=== PATIENT | female | born 1960 | race Caucasian/White ===

== ENCOUNTER → 2017-06-13 | Outpatient (CLI) | payer BC ==
[2017-06-13 12:53] LABS: BASO % 0 % (0-3); EOS # 0.2 x10^3/uL (0.0-0.7); EOS % 2 % (0-3); HEMATOCRIT 44.6 % (36.0-47.0); HEMOGLOBIN 15.2 g/dL (12.0-15.5); LYMPH # 1.9 x10^3/uL (1.0-4.8); LYMPH % 18 % (24-48); MEAN CORPUSCULAR HEMOGLOBIN 31 pg (25-35); MEAN CORPUSCULAR HGB CONC 34 g/dL (31-37); MEAN CORPUSCULAR VOLUME 91 fL (79-100); MONO # 0.5 x10^3/uL (0.0-1.1); MONO % 5 % (0-9); NEUT % 75 % (31-73); PLATELET COUNT 297 x10^3/uL (140-400); RED BLOOD COUNT 4.92 x10^6/uL (3.50-5.40); RED CELL DISTRIBUTION WIDTH 13.9 % (11.5-14.5); WHITE BLOOD COUNT 10.6 x10^3/uL (4.0-11.0)
[2017-06-13 13:10] LABS: ALBUMIN 3.6 g/dL (3.4-5.0); ALBUMIN/GLOBULIN RATIO 1.1 (1.0-1.7); CALCIUM 9.3 mg/dL (8.5-10.1); CREATININE 0.9 mg/dL (0.6-1.0); GFR 64.5; POTASSIUM 3.7 mmol/L (3.5-5.1); TOTAL BILIRUBIN 0.6 mg/dL (0.2-1.0)
--- NOTE | 2017-06-13 14:02 | RAD ---
CT abdomen pelvis without intravenous contrast History: Right flank pain for 24 hours. Comparison: None. Technique: CT of the abdomen and pelvis was performed without intravenous or oral contrast. Exposure: One or more of the following individualized dose reduction techniques were utilized for this examination: 1. Automated exposure control 2. Adjustment of the mA and/or kV according to patient size 3. Use of iterative reconstruction technique Findings: Evaluation of solid organs is limited by lack of intravenous contrast. Evaluation of enteric structures may be limited by lack of oral contrast. Mild fatty liver disease is seen. Calcified splenic granulomata are present. Pancreas is unremarkable. Left adrenal gland demonstrates 2.0 cm lipid rich adenoma. Right adrenal gland demonstrates 1.0 cm lipid rich adenoma. Aortic atherosclerosis is seen. Gallbladder is absent. Bilateral kidneys and ureters are free stone or obstruction. Inferior pole of left kidney demonstrates subcentimeter low-attenuation lesion which appears mildly dense with Hounsfield units of about 33, not adequately characterized. No bowel obstruction or inflammation is identified. Colonic diverticulosis is noted, but no diverticulitis is appreciated. Uterus is absent. Urinary bladder is unremarkable. Appendix is without evidence of inflammation. No free air or free fluid is seen within the abdomen or pelvis. Degenerative changes are present in the spine. Impression: 1. No evidence of urinary stone. No acute abnormality identified in the abdomen or pelvis. 2. Inferior pole of left kidney demonstrates subcentimeter slightly hyperattenuating lesion, nonspecific. Attempt at evaluation could be made with ultrasound. Alternatively, renal mass protocol CT without and with intravenous contrast could be performed. Electronically signed by: Dashawn Palumbo MD (06/13/2017 1:59 PM) [id number]
== END | disposition home or self-care (01) ==
LOC: CT 12:13
PROVIDERS: ATTEND Family Medicine
DX: M54.08 Panniculitis affecting regions of neck and back, sacral and sacrococcygeal region (principal); K57.30 Diverticulosis of large intestine without perforation or abscess without bleeding; I70.0 Atherosclerosis of aorta; D73.89 Other diseases of spleen; D35.02 Benign neoplasm of left adrenal gland
CPT/HCPCS: 36415; 74176; 80053; 85025

== ENCOUNTER → 2017-06-15 | Outpatient (CLI) | payer BC ==
[~2017-06-15] MED LIST: CONTRAST GIVEN MC PRN
[2017-06-15] MEDS: IOHEXOL 300 MG/ML 75 ML VIAL. IV ONE (13:40)
--- NOTE | 2017-06-15 14:42 | RAD ---
CT abdomen without and with intravenous contrast (CT renal mass protocol) History: Left renal lesion. Comparison: CT abdomen pelvis June 13, 2017. Technique: Initially, noncontrast CT of the abdomen was performed. After intravenous contrast administration, 75 mL Omnipaque-300, repeat CT of the abdomen was performed in corticomedullary and nephrographic phases. Exposure: One or more of the following individualized dose reduction techniques were utilized for this examination: 1. Automated exposure control 2. Adjustment of the mA and/or kV according to patient size 3. Use of iterative reconstruction technique Findings: Inferior pole of the left kidney lesion measures about 7 mm in maximum dimension. This has precontrast Hounsfield units estimated at 60 with the corticomedullary Hounsfield units of about 55 and nephrographic Hounsfield units of about 55. This is favored to represent hyperdense cyst. Both kidneys demonstrate additional subcentimeter low-attenuation lesions which are probably small cysts. No renal obstruction is seen. Calcified splenic granulomata are present. No focal hepatic mass is identified. Pancreas is unremarkable. Cholecystectomy clips are seen. Bilateral adrenal adenomata are unchanged. Aortic atherosclerosis is seen. Visualized bowel is without evidence of obstruction. Fat-containing epigastric ventral hernia as well as fat-containing umbilical hernia can be seen. Degenerative changes are present in the spine. Impression: 1. Previously identified subcentimeter hyperdense left renal lesion is favored represent hyperdense cyst. 2. Additional subcentimeter low-attenuation lesions are seen involving both kidneys, probably small subcentimeter cysts. 3. No evidence of urinary stone. 4. No acute abnormality identified in the abdomen or pelvis. 5. Fat-containing ventral hernias. Electronically signed by: Dashawn Palumbo MD (06/15/2017 2:39 PM) [place] [id number]
== END | disposition home or self-care (01) ==
LOC: CT 13:20
PROVIDERS: ATTEND Family Medicine
DX: D41.02 Neoplasm of uncertain behavior of left kidney (principal); K43.9 Ventral hernia without obstruction or gangrene; I70.0 Atherosclerosis of aorta; K42.9 Umbilical hernia without obstruction or gangrene; I10 Essential (primary) hypertension; R56.9 Unspecified convulsions; Z79.01 Long term (current) use of anticoagulants
CPT/HCPCS: 74170; Q9967

== ENCOUNTER → 2019-02-08 | Outpatient (CLI) | payer BC ==
--- NOTE | 2019-02-08 11:04 | RAD ---
EXAM: Left ankle, 3 views. HISTORY: Pain. COMPARISON: None. FINDINGS: 3 views of the left ankle are obtained. There is no fracture, dislocation or subluxation. There is a chronic ununited fracture fragments inferior to the medial malleolus. No osteochondral lesion is seen. There is a small plantar spur. There are bulky enthesophytes at the Achilles tendon insertion. There is a tiny ossicle or calcification anterior to the tibiotalar joint. IMPRESSION: 1. No acute osseous finding. 2. Chronic remote posttraumatic and degenerative change, described above. Electronically signed by: Akiko Ang MD (02/08/2019 11:01 AM) [email or web address]
== END | disposition home or self-care (01) ==
LOC: PMG 10:16
PROVIDERS: ATTEND Family Medicine
DX: M77.52 Other enthesopathy of left foot and ankle (principal); M25.872 Other specified joint disorders, left ankle and foot
CPT/HCPCS: 73610

== ENCOUNTER 2019-08-09 11:26 | Emergency (ER) | payer BC ==
[~2019-08-09] VITALS: Ht 165.1 cm; Wt 86.8 kg
--- NOTE | 2019-08-09 12:25 | RAD ---
3 view study of both wrists Clinical indications: Fall. Bilateral wrist injury and pain. LEFT WRIST: There is an impacted comminuted T-shaped fracture of the distal left radial metaphysis and epiphysis. There is intra-articular extension medially. There is dorsal angulation of the radiocarpal articulation. In addition, there is a nondisplaced transverse fracture of the ulnar styloid process. Scaphoid bone is intact. No lytic process is seen. 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 IMPRESSION: Comminuted impacted distal left radial fracture. Fracture of ulnar styloid process. RIGHT WRIST: There is a comminuted T-shaped impacted fracture of the distal right radial metaphysis and epiphysis with intra-articular extension. There is dorsal angulation of the apex of the fracture. There is dorsal displacement of the distal epiphysis. Nondisplaced fracture of the ulnar styloid process is seen as well. The scaphoid bone is intact. No lytic process is seen. IMPRESSION: Comminuted impacted distal right radial fracture. Fracture of ulnar styloid process. Electronically signed by: Christopher Russell MD (08/09/2019 12:22 PM) [id number]
[2019-08-09] MEDS: HYDROcodone/APAP 5/325MG 1 TAB TABLET PO ONE (12:30)
[2019-08-09] MEDS ORDERED: HYDR-3165 PO (13:18)
--- NOTE | 2019-08-09 13:18 | PHYS DOC ---
Past History Past Medical History: Depression, GERD, Hypertension Past Surgical History: Cholecystectomy, Other Additional Past Surgical Histo: CARDIAC STENT, LEFT SHOULDER Additional Smoking Information: PACK/DAY Alcohol Use: None General Adult EDM: Chief Complaint: MECHANICAL FALL HPI: HPI: Patient is a 59-year-old female who presented to ER today for evaluation of bilateral wrist injury. Patient says she was walking down the stairs, she missed a step and fell down about 10 steps. She broke her fall by putting her hands down, complained of severe bilateral wrist pain. Patient bumped her chin on the carpeted floor, no head or neck injury, no head or neck pain, no loss of consciousness. Patient denies any knee pain, no back pain. Review of Systems: Review of Systems: Constitutional: Denies fever or chills Eyes: Denies change in visual acuity HENT: Denies nasal congestion or sore throat Respiratory: Denies cough or shortness of breath Cardiovascular: Denies chest pain or edema GI: Denies abdominal pain, nausea, vomiting, bloody stools or diarrhea : Denies dysuria Musculoskeletal: Positive for bilateral wrists pain. Integument: Denies rash Neurologic: Denies headache, focal weakness or sensory changes Endocrine: Denies polyuria or polydipsia Lymphatic: Denies swollen glands Psychiatric: Denies depression or anxiety Heart Score: Risk Factors: Risk Factors: DM, Current or recent (<one month) smoker, HTN, HLP, family history of CAD, obesity. Risk Scores: Score 0 - 3: 2.5% MACE over next 6 weeks - Discharge Home Score 4 - 6: 20.3% MACE over next 6 weeks - Admit for Clinical Observation Score 7 - 10: 72.7% MACE over next 6 weeks - Early Invasive Strategies Current Medications: Current Meds: Current Medications Medications (Trade) Dose Ordered Sig/Vidya Start Time Stop Time Status Last Admin Dose Admin Acetaminophen/ Hydrocodone Bitart (Lortab 5/325) 2 tab 1X ONCE 08/09/19 12:15 08/09/19 12:26 DC 08/09/19 12:30 2 TAB Allergies: Allergies: Allergies Coded Allergies Type Severity Reaction Last Updated Verified No Known Drug Allergies 06/15/17 No Physical Exam: PE: Constitutional: Well developed, well nourished, no acute distress, non-toxic appearance. [] HENT: Normocephalic, atraumatic, bilateral external ears normal, oropharynx moist, no oral exudates, nose normal. [] Eyes: PERRLA, EOMI, conjunctiva normal, no discharge. [] Neck: Normal range of motion, no tenderness, supple, no stridor. [] Cardiovascular:Heart rate regular rhythm, no murmur [] Lungs & Thorax: Bilateral breath sounds clear to auscultation [] Abdomen: Bowel sounds normal, soft, no tenderness, no masses, no pulsatile masses. [] Skin: Warm, dry, no erythema, no rash. [] Back: No tenderness, no CVA tenderness. [] Extremities: Bilateral wrists swelling, tender at the distal ulnar and radius areas, no open wound, there is no focal neurovascular deficit. Neurologic: Alert and oriented X 3, normal motor function, normal sensory function, no focal deficits noted. [] Psychologic: Affect normal, judgement normal, mood normal. [] Current Patient Data: Vital Signs: Vital Signs Date Time Temp Pulse Resp B/P (MAP) Pulse Ox O2 Delivery O2 Flow Rate FiO2 08/09/19 12:30 20 Room Air 08/09/19 11:35 98.7 52 114/64 (75) 97 EKG: EKG: [] Radiology/Procedures: Radiology/Procedures: [][address] [address] IMAGING REPORT Signed PATIENT: ADITYA CHURCH JACCOUNT: [id number] : 1960 LOCATION: ER AGE: 59 SEX: F EXAM STATUS: REG ER ORD. PHYSICIAN: KAVITHA CHRISTENSEN DO REASON: fell, bilateral wrists injured PROCEDURE: WRIST BILAT 3V 3 view study of both wrists Clinical indications: Fall. Bilateral wrist injury and pain. LEFT WRIST: There is an impacted comminuted T-shaped fracture of the distal left radial metaphysis and epiphysis. There is intra-articular extension medially. There is dorsal angulation of the radiocarpal articulation. In addition, there is a nondisplaced transverse fracture of the ulnar styloid process. Scaphoid bone is intact. No lytic process is seen. 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 IMPRESSION: Comminuted impacted distal left radial fracture. Fracture of ulnar styloid process. RIGHT WRIST: There is a comminuted T-shaped impacted fracture of the distal right radial metaphysis and epiphysis with intra-articular extension. There is dorsal angulation of the apex of the fracture. There is dorsal displacement of the distal epiphysis. Nondisplaced fracture of the ulnar styloid process is seen as well. The scaphoid bone is intact. No lytic process is seen. IMPRESSION: Comminuted impacted distal right radial fracture. Fracture of ulnar styloid process. Electronically signed by: Alcides Russell MD (08/09/2019 12:22 PM) [id number] DICTATED AND SIGNED BY: ALCIDES RUSSELL MD DATE: 08/09/19 1222 CC: KAVITHA CHRISTENSEN DO; ANÍBAL HOOK MD ~ Course & Med Decision Making: Course & Med Decision Making Pertinent Labs and Imaging studies reviewed. (See chart for details) Patient is a 59-year-old female who was evaluated in the ER due to injury to her wrists. It was found that she had bilateral distal ulna and radius fractures. Patient was consulted by Dr. Hugo Sr who recommended splinting, discharge home, follow-up in the clinic. Dragon Disclaimer: Dragon Disclaimer: This electronic medical record was generated, in whole or in part, using a voice recognition dictation system. Departure Departure: Impression: Primary Impression: Wrist fracture, closed Additional Impression: Wrist fracture, bilateral Disposition: 01 HOME/RESIDENCE PRIOR TO ADM Condition: STABLE Referrals: ANÍBAL HOOK MD (PCP) HUGO SR II, MD PLEASE CALL THIS ORTHOPEDIC SURGEON THIS WEEK FOR FOLLOW UP NEXT WEEK Patient Instructions: Radial Fracture, Ulnar Fracture, Wrist Fracture Scripts Hydrocodone Bit/Acetaminophen (NORCO 5-325 TABLET) 1 Each Tablet 1 TAB PO PRN Q6HRS PRN for PAIN, #15 TAB 0 Refills Prov: KAVITHA CHRISTENSEN DO 08/09/19 Splinting Splinting: Patient was informed about the x-ray finding of bilateral distal ulnar radius fracture, both of her wrists were splinted by this physician with Ortho-Glass material, Colle's cock up. Post splinting check, reviewed appropriate stabilization, capillary refill was less than 2 seconds bilaterally. Patient tolerated the procedure well. KAVITHA CHRISTENSEN DO Aug 09, 2019 13:18
[2019-08-09 13:22] VITALS: BP 121/71
== END 2019-08-09 13:24 | disposition home or self-care (01) ==
LOC: ER 11:26
DX: S52.502A Unspecified fracture of the lower end of left radius, initial encounter for closed fracture (principal); S52.602A Unspecified fracture of lower end of left ulna, initial encounter for closed fracture; S52.501A Unspecified fracture of the lower end of right radius, initial encounter for closed fracture; S52.601A Unspecified fracture of lower end of right ulna, initial encounter for closed fracture; K21.9 Gastro-esophageal reflux disease without esophagitis; I10 Essential (primary) hypertension; F17.210 Nicotine dependence, cigarettes, uncomplicated; W10.8XXA Fall (on) (from) other stairs and steps, initial encounter; Y93.89 Activity, other specified; Y92.89 Other specified places as the place of occurrence of the external cause; Y99.8 Other external cause status
CPT/HCPCS: 29125; 73110; 99283

== ENCOUNTER → 2019-08-22 | Outpatient (CLI) | payer BC ==
[2019-08-09 13:22] VITALS: BP 121/71
[~2019-08-22] MED LIST changes: -CONTRAST GIVEN MC PRN; +HYDR-3165 PO
--- NOTE | 2019-08-22 12:16 | RAD ---
Bilateral wrists, 2 views each INDICATION: Follow up wrist fractures COMPARISON: 08/09/19 Findings: Right wrist shows interval volar plate and screw construct fixation of the comminuted intra-articular distal radial fracture with improvement in alignment, showing resolution of apex volar angulation previously evident. Alignment is now near anatomic of the fracture lines are still visible. Nondisplaced ulnar styloid process fractures also seen. Soft tissues show diffuse swelling. No radiopaque foreign body. There is an overlying cast now present. Left wrist also shows interval volar plate and screw construct fixation of an apex volar acute distal radial fracture. Alignment is near-anatomic. The articular surface appears smooth (so this may be an extra-articular fracture) but there is mild widening of the scapholunate interval. Nondisplaced ulnar styloid process fracture also noted. Mild diffuse soft tissue swelling is present. IMPRESSION: Bilateral volar plate and screw construct fixation of distal radial fractures with near-anatomic alignment. Electronically signed by: Black Paige MD (08/22/2019 12:13 PM) [id number]
== END | disposition home or self-care (01) ==
LOC: DXRAD 10:17
PROVIDERS: ATTEND Physician Assistant
DX: S52.572A Other intraarticular fracture of lower end of left radius, initial encounter for closed fracture (principal); S52.571A Other intraarticular fracture of lower end of right radius, initial encounter for closed fracture; S52.615A Nondisplaced fracture of left ulna styloid process, initial encounter for closed fracture; X58.XXXA Exposure to other specified factors, initial encounter; Y93.89 Activity, other specified; Y92.89 Other specified places as the place of occurrence of the external cause; Y99.8 Other external cause status; M79.89 Other specified soft tissue disorders
CPT/HCPCS: 73100

== ENCOUNTER → 2019-09-10 | Outpatient (CLI) | payer BC ==
--- NOTE | 2019-09-10 14:02 | RAD ---
3 views the bilateral wrists compared to bilateral wrist radiographs dated August 22, 2023 bilateral wrist fracture follow-up. FINDINGS: Casts have both been removed. There is redemonstration of comminuted intra-articular bilaterally impaction fractures of the distal radii bilaterally, both of which have undergone plate and screw fixation. No overall change in configuration of the fracture fragments or surgical hardware. Fractures of both ulnar styloids are stable as well. There may be some minimal intrinsic calcification. IMPRESSION: 1. Stable comminuted intra-articular fractures of the distal radii with plate and screw fixation and no significant interval change in appearance or configuration. 2. No definite interval healing, though there may be some very minimal callus formation. Electronically signed by: Andriy Owens MD (09/10/2019 1:59 PM) [id number]
== END ==
LOC: RAD 10:46
PROVIDERS: ATTEND Physician Assistant
DX: S52.572A Other intraarticular fracture of lower end of left radius, initial encounter for closed fracture (principal); S52.571A Other intraarticular fracture of lower end of right radius, initial encounter for closed fracture; X58.XXXA Exposure to other specified factors, initial encounter; Y93.89 Activity, other specified; Y92.89 Other specified places as the place of occurrence of the external cause; Y99.8 Other external cause status
CPT/HCPCS: 73110

== ENCOUNTER → 2019-10-18 | Outpatient (CLI) | payer BC ==
--- NOTE | 2019-10-18 09:56 | RAD ---
Bilateral wrists, 3 views each INDICATION: Follow-up wrist fractures COMPARISON: 09/10/2019, 08/22/2019 TECHNIQUE: AP, lateral and oblique views of the left and right wrists were obtained. FINDINGS: Right wrist: Volar plate and screw construct fixation of the comminuted distal radial impacted intra-articular fracture is present with further callus formation across the fracture margin. Stable alignment. Tiny fracture fragments of the ulna solid process are noted as well. No new fractures or aggressive appearing bony lesions. No evidence of hardware loosening or migration. Mild residual soft tissue swelling. Left wrist: Well-inflated screw construct fixation of comminuted distal radial fracture with probable intra-articular extension showing minimal sclerosis along the fracture line, compatible with evidence of partial healing.. Ulnar styloid process fracture shows no evidence of interval healing. Mild residual soft tissue swelling. IMPRESSION: Volar plate and screw construct fixation of bilateral distal radial fractures with stable alignment and evidence of further partial healing bilaterally. Electronically signed by: Black Paige MD (10/18/2019 9:54 AM) [id number]
== END | disposition home or self-care (01) ==
LOC: DXRAD 08:24
PROVIDERS: ATTEND Physician Assistant
DX: S52.501D Unspecified fracture of the lower end of right radius, subsequent encounter for closed fracture with routine healing (principal); S52.502D Unspecified fracture of the lower end of left radius, subsequent encounter for closed fracture with routine healing; X58.XXXD Exposure to other specified factors, subsequent encounter
CPT/HCPCS: 73110

== ENCOUNTER → 2019-11-30 | Outpatient (CLI) | payer BC ==
--- NOTE | 2019-11-30 12:10 | RAD ---
3 views the bilateral wrists compared to similar exam dated October 18, 2019 for status post surgery and fractures. FINDINGS: Volar plate and screw fixation of distal radial fractures is seen again bilaterally. Bilateral ulnar styloid fractures are again evident as well. Overall appearances unchanged in terms of alignment and fixation implements. No new fractures. Additional interval callus formation is present in multiple locations suggesting ongoing healing. IMPRESSION: 1. Stable minimally impacted distal radial fracture status post volar plate and screw fixation. 2. Stable bilateral ulnar styloid fractures. 3. Radiographic evidence of continued interval callus formation. Electronically signed by: Andriy Owens MD (11/30/2019 12:07 PM) [id number]
== END | disposition home or self-care (01) ==
LOC: DXRAD 08:23
PROVIDERS: ATTEND Physician Assistant
DX: Z09 Encounter for follow-up examination after completed treatment for conditions other than malignant neoplasm (principal); S52.616 Nondisplaced fracture of unspecified ulna styloid process; X58.XXXD Exposure to other specified factors, subsequent encounter; S52.59 Other fractures of lower end of radius
CPT/HCPCS: 73110

== ENCOUNTER → 2020-01-30 | Outpatient (CLI) | payer BC ==
--- NOTE | 2020-01-30 14:15 | RAD ---
RS Compliance Statement: One or more of the following individualized dose reduction techniques were utilized for this examination: 1. Automated exposure control 2. Adjustment of the mA and/or kV according to patient size 3. Use of iterative reconstruction technique CT HEAD WITHOUT CONTRAST History: Headache, post concussion one year ago. Comparison: CT head without contrast, March 28, 2007. Procedure: Axial images are obtained of the head from the skull base through the vertex without IV contrast. Findings: The ventricles and sulci are normal for the patient's age. No mass-effect, midline shift, hemorrhage, extra-axial fluid collection, or obvious acute infarction is identified. Basilar cisterns are patent. Bone windows demonstrate no acute calvarial abnormality. The visualized paranasal sinuses are clear. Mastoid air cells are well aerated. IMPRESSION: No acute intracranial abnormality. Electronically signed by: Arnoldo Carlton MD (01/30/2020 2:12 PM) [facility]
== END ==
LOC: CT 09:40
PROVIDERS: ATTEND Family Medicine
DX: G44.309 Post-traumatic headache, unspecified, not intractable (principal)
CPT/HCPCS: 70450

== ENCOUNTER → 2020-05-01 | Outpatient (CLI) | payer BC | LOC: LAB 08:58 | PROVIDERS: ATTEND Family Medicine | DX: R43.2 Parageusia (principal); Z20.822 Contact with and (suspected) exposure to COVID-19 | CPT/HCPCS: U0003 ==

== ENCOUNTER → 2020-06-23 | Outpatient (CLI) | payer BC ==
--- NOTE | 2020-06-23 11:02 | RAD ---
EXAM: Right lower extremity arterial Doppler sonogram. HISTORY: Peripheral vascular disease. Pain. Atherosclerosis. TECHNIQUE: A scale and color Doppler sonographic imaging of the lower 70 arteries with spectral giovanna sis was performed. COMPARISON: None. FINDINGS: There is atherosclerotic plaque and and elevated peak systolic velocity within the right co mmon femoral artery, measuring 157 cm/s. There are normal peak systolic velocities throughout the rem ainder of the right lower cavity arteries. There are biphasic waveforms throughout the right lower ex tremity arteries. IMPRESSION: 1. Mild atherosclerotic plaque and elevated peak systolic velocity within the right common femoral ar joshua suggesting mild hemodynamically significant stenosis. 2. No additional evidence of significant stenosis or arterial occlusion. Electronically signed by: Akiko Ang MD (06/23/2020 11:00 AM) [id number]
== END ==
LOC: US 09:45
PROVIDERS: ATTEND Family Medicine
DX: I70.201 Unspecified atherosclerosis of native arteries of extremities, right leg (principal)
CPT/HCPCS: 93926

== ENCOUNTER → 2020-07-14 | Outpatient (CLI) | payer BC ==
--- NOTE | 2020-07-14 15:29 | RAD ---
EXAM: Pelvis and bilateral hips, 3 views. HISTORY: Pain. COMPARISON: None. FINDINGS: A frontal view of the pelvis and frog-leg views of both hips are obtained. There is no frac ture, dislocation or subluxation. There is mild marginal left femoral head spurring. There is degener ative subchondral sclerosis involving the sacroiliac joints. There is degenerative change at the lowe r lumbar levels. IMPRESSION: 1. Mild left hip osteoarthritis. 2. Degenerative change involving the sacroiliac joints and lower lumbar spine. Electronically signed by: Akiko Ang MD (07/14/2020 3:26 PM) [facility]
== END ==
LOC: RAD 15:13
PROVIDERS: ATTEND Family Medicine
DX: M16.0 Bilateral primary osteoarthritis of hip (principal); M46.1 Sacroiliitis, not elsewhere classified; M47.816 Spondylosis without myelopathy or radiculopathy, lumbar region
CPT/HCPCS: 73521

== ENCOUNTER → 2021-02-06 | Outpatient (CLI) | payer BC ==
--- NOTE | 2021-02-09 10:59 | RAD ---
Thyroid ultrasound 02/06/2021 CLINICAL HISTORY: Dysphagia. TECHNIQUE: A real-time ultrasound examination of the thyroid gland was performed. Multiple images wer e obtained. FINDINGS: The thyroid gland is normal in size. It is heterogeneous. The right lobe of the thyroid gla nd measures 3.8 x 1.7 x 1.0 cm in longitudinal, transverse, and AP dimensions. The left lobe of the t hyroid gland measures 3.9 x 1.6 x 0.9 cm in size. The isthmus measures 4 mm in thickness. Within the inferior aspect of the right lobe of the thyroid gland a hypoechoic nodule is seen which m easures 0.5 cm in greatest diameter. Its ultrasound appearance is consistent with a TI-RADS Category 4 moderately suspicious nodule. A follow-up ultrasound in one year is recommended to document its sta bility. No additional abnormality of the thyroid gland is seen. No abnormal soft tissue mass or cervical lymphadenopathy is seen within the visualized portions of th e neck. IMPRESSION: 0.5 cm hypoechoic nodule is seen within the inferior aspect of the right lobe of the thyr oid gland. A follow-up ultrasound in one year is recommended to document its stability. Electronically signed by: Angel Turcios MD (02/09/2021 10:56 AM) [id number]
== END ==
LOC: US 14:42
PROVIDERS: ATTEND Physician Assistant Medical
DX: E04.1 Nontoxic single thyroid nodule (principal); R13.10 Dysphagia, unspecified
CPT/HCPCS: 76536

== ENCOUNTER → 2021-07-01 | Outpatient (CLI) | payer BC ==
--- NOTE | 2021-07-01 11:32 | RAD ---
EXAM: Right knee, 3 views HISTORY: Right knee pain after injury. COMPARISON: None. FINDINGS: No fractures are identified. There is mild medial compartmental joint space narrowing. Alignment is n ormal. There is no joint effusion. A loose body within the anterior intercondylar notch measures 5 mm . Mild atherosclerotic calcifications are noted. IMPRESSION: 1. Mild medial compartmental osteoarthritis. 5 mm loose body within the anterior intercondylar notch. Electronically signed by: Corey Lomas MD (07/01/2021 11:30 AM) [id number]
== END ==
LOC: RAD 11:03
PROVIDERS: ATTEND Physician Assistant Medical
DX: M17.11 Unilateral primary osteoarthritis, right knee (principal); M25.861 Other specified joint disorders, right knee
CPT/HCPCS: 73562